=== PATIENT | male | born 1980 | race Caucasian/White ===

== ENCOUNTER 2021-04-06 18:29 | Inpatient (IN) | payer OTHER, SELFPAY ==
[~2021-04-06] VITALS: Ht 172.7 cm; Wt 179.6 kg
[2021-04-06 19:00] VITALS: BP 128/80
[2021-04-06 21:24] LABS: BASOPHILS # (AUTO) 0.1 K/uL (0.00-0.22); BASOPHILS % (AUTO) 0.4 % (0.0-2.0); EOSINOPHILS # (AUTO) 0.1 K/uL (0-0.4); EOSINOPHILS % (AUTO) 0.4 % (0.0-4.0); HEMATOCRIT 51.4 % (36-52); HEMOGLOBIN 17.3 g/dL (12.0-18.0); LYMPHOCYTES # (AUTO) 1.3 K/uL (2.0-11.5); LYMPHOCYTES % (AUTO) 9.9 % (20.5-51.1); MEAN CORPUSCULAR HEMOGLOBIN 28 pg (27-31); MEAN CORPUSCULAR HGB CONC 34 g/dL (33-37); MEAN CORPUSCULAR VOLUME 83.5 fL (80-94); MONOCYTES # (AUTO) 1.8 K/uL (0.8-1.0); MONOCYTES % (AUTO) 13.6 % (1.7-9.3); NEUTROPHILS % (AUTO) 75.7 % (42.2-75.2); PLATELET COUNT (AUTO) 316 K/uL (140-450); RED BLOOD CELL COUNT(AUTO) 6.16 MIL/uL (4.20-6.10); RED CELL DISTRIBUTION WIDTH 15.2 % (11.6-13.7); WHITE BLOOD COUNT (AUTO) 13.2 K/uL (4.8-10.8)
[2021-04-06 21:48] LABS: ALBUMIN 3.1 g/dL (3.4-5.0); ANION GAP 15.6 (8-16); CARBON DIOXIDE 27.6 mmol/L (21-32); POTASSIUM 4.2 mmol/L (3.5-5.1); TOTAL BILIRUBIN 2.4 mg/dL (0.0-1.0)
[2021-04-06] MEDS ORDERED: hePARIN / DEXT 5% PREMIX 250 ML IV ONE (22:05)
[2021-04-06] MEDS ORDERED: HEPARIN PER PHARMACY MC PRN (22:05)
[2021-04-06] MEDS ORDERED: ACETAMINOPHEN 325 MG TAB PO PRN (22:40)
[2021-04-06] MEDS ORDERED: MAGNESIUM OXIDE 400 MG TAB PO PRN (22:40)
[2021-04-06] MEDS ORDERED: MAG SULF 2000 MG/WATER PREMIX 50 ML IV PRN (22:40)
[2021-04-06] MEDS ORDERED: MORPHINE SULFATE 4 MG/ML SYR IVP PRN (22:40)
[2021-04-06] MEDS ORDERED: KCL 20 MEQ/WATER INJ PREMIX 200 ML IV PRN (22:40)
[2021-04-06] MEDS ORDERED: HYDROcodone/APAP 5/325 MG 1 TAB TAB PO PRN (22:40)
[2021-04-06] MEDS ORDERED: POTASSIUM CHLORIDE 10 MEQ TABER PO PRN (22:40)
[2021-04-06] MEDS ORDERED: ONDANSETRON 4 MG/2 ML VIAL IVP PRN (22:40)
--- NOTE | 2021-04-06 22:54 | NUR ---
PT MOVED TO ER BED 9
--- NOTE | 2021-04-06 23:00 | NUR ---
received from triage to room 9, here for gen weakness. on assesment pt is aox4, noted bilateral lower limb swelling, with non-healing wound onj the left lateral ankle.
[2021-04-06 23:13] LABS: PROTHROMBIN TIME 16.8 secs (10.8-13.4)
[2021-04-07] MEDS ORDERED: hePARIN / DEXT 5% PREMIX 250 ML IV ONE (01:54)
--- NOTE | 2021-04-07 05:00 | NUR ---
leg wound cleaned and dressed.
--- NOTE | 2021-04-07 07:24 | NUR ---
hand off given to Rachel ANDERSON
--- NOTE | 2021-04-07 09:00 | NUR ---
SPOKE WITH GIOVANA FROM PHARMACY. PT IS CURRENTLY ON HEPARIN DRIP, BUT HAS NOT BEEN CHARTED BY [employer] INTERN NURSE. INFORMED GIOVANA WILL WAIT FOR PTT AND CHART HEPARING DRIP
[2021-04-07 10:22] LABS: ANION GAP 16.8 (8-16); CARBON DIOXIDE 25.6 mmol/L (21-32); CREATININE 2.3 mg/dL (0.6-1.3); POTASSIUM 3.4 mmol/L (3.5-5.1)
[2021-04-07 10:35] LABS: BASOPHILS % (AUTO) 0.4 % (0.0-2.0); EOSINOPHILS # (AUTO) 0.1 K/uL (0-0.4); EOSINOPHILS % (AUTO) 1.1 % (0.0-4.0); HEMATOCRIT 48.7 % (36-52); HEMOGLOBIN 16.5 g/dL (12.0-18.0); LYMPHOCYTES # (AUTO) 1.5 K/uL (2.0-11.5); LYMPHOCYTES % (AUTO) 14.5 % (20.5-51.1); MEAN CORPUSCULAR HEMOGLOBIN 28 pg (27-31); MEAN CORPUSCULAR HGB CONC 34 g/dL (33-37); MEAN CORPUSCULAR VOLUME 83.9 fL (80-94); MONOCYTES # (AUTO) 1.4 K/uL (0.8-1.0); MONOCYTES % (AUTO) 13.2 % (1.7-9.3); NEUTROPHILS # (AUTO) 7.3 K/uL (1.8-7.7); NEUTROPHILS % (AUTO) 70.8 % (42.2-75.2); PLATELET COUNT (AUTO) 291 K/uL (140-450); RED BLOOD CELL COUNT(AUTO) 5.81 MIL/uL (4.20-6.10); RED CELL DISTRIBUTION WIDTH 14.4 % (11.6-13.7); WHITE BLOOD COUNT (AUTO) 10.3 K/uL (4.8-10.8)
--- NOTE | 2021-04-07 10:40 | NUR ---
PT TAKEN TO RESTROOM VIA W/C
--- NOTE | 2021-04-07 11:08 | NUR ---
PT RETURNED TO BED 9 FROM RESTROOM VIA W/C
--- NOTE | 2021-04-07 11:12 | NUR ---
[employer] SUPERVIS[employer] AT PATIENT BEDSIDE
--- NOTE | 2021-04-07 12:11 | NUR ---
SPOKE WITH GIOVANA FROM PHARMACY, HEPARIN DRIP NEEDS TO BE RECALCUATED DUE TO INCORRECT WEIGHT
[2021-04-07] MEDS: hePARIN / DEXT 5% PREMIX 250 ML IV SCH (12:40)
--- NOTE | 2021-04-07 12:43 | NUR ---
ORDER FOR NEW PTT PLACED FOR 1829. HEPARIN DRIP INCREASED AT 1230 PER CURRENT PTT
--- NOTE | 2021-04-07 12:45 | NUR ---
Patient appears to be resting comfortably in bed. Vital Signs within normal limits. Respirations even and unlabored.
--- NOTE | 2021-04-07 16:51 | NUR ---
PATIENT HAS BEEN SCREENED AND CATEGORIZED MODERATE NUTRITION RISK. PATIENT WILL BE SEEN WITHIN 3-5 DAYS OF ADMISSION. / LES [address]
--- NOTE | 2021-04-07 18:00 | NUR ---
PT RESTING IN GURNEY NO CHANGES NOTED. HEPARIN INFUSING PER ORDER. NAD. SAFETY MAINTAINED.
--- NOTE | 2021-04-07 19:30 | NUR ---
PATIENT OBSERVED IN BED RESTING COMFORTABLY IN NO APPARENT ACUTE DISTRESS. AOX4, PATIENT DENIED ANY PAIN OR DISCOMFORT. HEPARIN DRIP RUNNING. ALL SAFETY MEASURES IN PLACE. WILL CONTINUE TO CLOSELY MONITOR AND FOLLOW POC.
--- NOTE | 2021-04-08 03:26 | NUR ---
PATIENT OBSERVED SLEEPING WITH EYES CLOSED IN NO ACUTE DISTRESS, VSS. BREATHING AT RA EVEN AND UNLABORED. WILL CONTINUE TO CLOSELY MONITOR AND FOLLOW POC.
--- NOTE | 2021-04-08 07:30 | NUR ---
RECEIVED PT IN GURNEY AOX4. DENIES PAIN OR DISCOMFORT. BREATHING UNLABORED. IV HEPARIN PER PROTOCOL. NAD. SAFETY MAINTAINED.
[2021-04-08 09:09] LABS: BASOPHILS # (AUTO) 0.1 K/uL (0.00-0.22); BASOPHILS % (AUTO) 0.6 % (0.0-2.0); EOSINOPHILS # (AUTO) 0.2 K/uL (0-0.4); EOSINOPHILS % (AUTO) 1.9 % (0.0-4.0); HEMOGLOBIN 15.9 g/dL (12.0-18.0); LYMPHOCYTES # (AUTO) 1.2 K/uL (2.0-11.5); LYMPHOCYTES % (AUTO) 13.8 % (20.5-51.1); MEAN CORPUSCULAR HEMOGLOBIN 28 pg (27-31); MEAN CORPUSCULAR HGB CONC 34 g/dL (33-37); MEAN CORPUSCULAR VOLUME 83.3 fL (80-94); MONOCYTES # (AUTO) 1.2 K/uL (0.8-1.0); MONOCYTES % (AUTO) 13.2 % (1.7-9.3); NEUTROPHILS # (AUTO) 6.4 K/uL (1.8-7.7); NEUTROPHILS % (AUTO) 70.5 % (42.2-75.2); PLATELET COUNT (AUTO) 266 K/uL (140-450); RED BLOOD CELL COUNT(AUTO) 5.65 MIL/uL (4.20-6.10); RED CELL DISTRIBUTION WIDTH 14.6 % (11.6-13.7); WHITE BLOOD COUNT (AUTO) 9.1 K/uL (4.8-10.8)
[2021-04-08 09:32] LABS: ANION GAP 17.2 (8-16); CARBON DIOXIDE 23.2 mmol/L (21-32); CREATININE 1.6 mg/dL (0.6-1.3); POTASSIUM 3.4 mmol/L (3.5-5.1)
[2021-04-08 10:25] LABS: MAGNESIUM 2.1 mg/dL (1.8-2.4); PHOSPHORUS 3.9 mg/dL (2.5-4.9)
[2021-04-08] MEDS: hePARIN / DEXT 5% PREMIX 250 ML IV SCH (12:17)
[2021-04-08] MEDS ORDERED: APIX5TAB PO ×2 (16:07→16:08)
[2021-04-08 17:44] VITALS: BP 160/85
--- NOTE | 2021-04-08 18:23 | NUR ---
PT DC HOME PER DR AGUIRRE, IV REMOVED NO ACTIVE BLEEDING NOTED. VSS. TAXI CALLED FOR PT. NO ACUTE DISTRESS NOTED. STABLE ON DC.
[2021-04-08 18:24] VITALS: BP 160/80
[2021-04-08] MEDS ORDERED: LABETALOL 200 MG TAB PO SCH (21:00)
[2021-04-08] MEDS ORDERED: APIXABAN 2.5 MG TAB PO SCH (21:00)
== END 2021-04-08 17:58 | disposition home or self-care (01) | DRG 197 ==
LOC: MED 18:29 → MTU 22:40
PROVIDERS: ADMIT Hospitalist; ATTEND Hospitalist
DX: I82.411 Acute embolism and thrombosis of right femoral vein (principal); J96.01 Acute respiratory failure with hypoxia; N17.0 Acute kidney failure with tubular necrosis; I82.431 Acute embolism and thrombosis of right popliteal vein; M62.82 Rhabdomyolysis; Z68.44 Body mass index [BMI] 60.0-69.9, adult; E66.01 Morbid (severe) obesity due to excess calories; Z20.822 Contact with and (suspected) exposure to COVID-19; I82.441 Acute embolism and thrombosis of right tibial vein; I10 Essential (primary) hypertension; I16.0 Hypertensive urgency; I87.8 Other specified disorders of veins; Z86.16 Personal history of COVID-19
CPT/HCPCS: 36415; 71045; 73610; 76770; 80048; 80053; 82550; 82553; 83735; 83880; 84100; 84484; 85025; 85379; 85610; 85730; 93005; 93971; 96374; 99291; J1644; Q0092